=== PATIENT | male | born 1995 | race Two or more races ===

== ENCOUNTER 2025-06-17 20:30 | Emergency (ER) | payer MEDICAID, SELFPAY ==
[2025-06-17 20:33] VITALS: BMI 30.8
[2025-06-17 20:47] VITALS: BP 149/96; PULSE 90; RESP 18; TEMP 37.4; O2SAT 96
--- NOTE | 2025-06-17 21:03 | XR_ITS ---
Examination: Foot, right, 3 views Technique: AP, oblique, lateral views foot, 3 views Date and time of exam: June 17, 20252010 hours INDICATION: Right foot swelling and pain beginning 4 days ago. FINDINGS: No fracture or dislocation Soft tissue swelling dorsum of the foot IMPRESSION: Soft tissue swelling dorsum of the foot No fracture or cortical bone destruction
--- NOTE | 2025-06-17 21:04 | PD.EDRME ---
Rapid Medical Screening Exam E Arrival date/time: 06/17/25 20:30 30M with no significant PMH presents to ED with several days of worsening R foot swelling/pain w/o fall/trauma or skin injury/penetration. Chief Complaint: Ankle/Foot Injury Vital signs: Vital Signs Temperature 99.3 F 06/17/25 20:47 Pulse Rate 90 06/17/25 20:47 Respiratory Rate 18 06/17/25 20:47 Blood Pressure 149/96 H 06/17/25 20:47 Pulse Oximetry (%) 96 06/17/25 20:47 Oxygen Delivery Method Room Air 06/17/25 20:47
[2025-06-17 21:16] LABS: Basophils # (Auto) 0.0 Thou/mm3 (0.0-0.2); Basophils % (Auto) 0 % (0-2.5); Eosinophils # (Auto) 0.2 Thou/mm3 (0.0-0.5); Eosinophils % (Auto) 3 % (0-10); Hematocrit 41.6 % (41.0-53.0); Hemoglobin 13.9 g/dL (13.5-16.0); Immature Granulocytes Auto 0.04 Thou/mm3 (0.00-0.00); Lymphocytes # (Auto) 2.2 Thou/mm3 (1.0-4.8); Lymphocytes % (Auto) 28 % (10-50); Mean Corpuscular HGB Conc 33.4 g/dl (31.0-37.0); Mean Corpuscular Hemoglobin 28.7 pg (25.0-35.0); Mean Corpuscular Volume 86 fL (80-100); Monocytes # (Auto) 0.7 Thou/mm3 (0.0-0.8); Monocytes % (Auto) 9 % (0-12); Neutrophils # (Auto) 4.7 Thou/mm3 (1.8-7.7); Neutrophils % (Auto) 59 % (37-80); Nucleated Red Blood Cell # 0.00 Thou/mm3 (0.00-0.00); Nucleated Red Blood Cell % 0 /100 WBC (0); Platelet Count 290 Thou/mm3 (140-440); RDW Standard Deviation 39.8 fL (35.1-43.9); Red Blood Count 4.84 Miln/mm3 (4.50-5.90); White Blood Count 7.9 Thou/mm3 (3.8-10.6)
[2025-06-17 21:33] LABS: Sed Rate (ESR) 13 mm/hr (0-15)
[2025-06-17 22:01] LABS: Alanine Aminotransferase 67 U/L (10-49); Albumin, Serum 4.7 gm/dL (3.5-5.0); Albumin/Globulin Ratio 1.6 (1.2-2.2); Alkaline Phosphatase 76 U/L (46-116); Anion Gap 7 (7-16); Aspartate Amino Transferase 32 U/L (0-34); BUN/Creatinine Ratio 11 Ratio (12-20); Bilirubin,Total 0.4 mg/dL (0.3-1.2); Blood Urea Nitrogen 10 mg/dL (9-23); Calcium 9.8 mg/dL (8.3-10.6); Calcium (Corrected) 9.8 mg/dL (8.5-10.1); Carbon Dioxide 27.6 mMol/L (20.0-31.0); Chloride 104 mMol/L (98-107); Creatinine (Component) 0.9 mg/dL (0.6-1.3); Estimated Creatinine Clearance 131.3 mL/min (>60); Globulin 2.9 gm/dL (2.3-3.5); Glucose 166 mg/dL (74-106); Osmolality,Calculated 280 (275-295); Potassium 3.9 mMol/L (3.4-5.1); Sodium 139 mMol/L (136-145); Total Protein 7.6 gm/dL (5.7-8.2); eGFR > 60 See Note
[2025-06-17 22:45] LABS: Glucose Estimated Average 128 mg/dL (80-131); Hemoglobin A1C 6.1 % Hgb (4.8-6.0)
[2025-06-17 23:36] VITALS: BP 154/89; PULSE 84; RESP 18; TEMP 37.3; O2SAT 97
--- NOTE | 2025-06-18 00:13 | EDNOTE_ITS ---
Lower Extremity Injury RME/HPI General Chief Complaint: Ankle/Foot Injury Stated Complaint: RT FOOT SWOLLEN Arrival date/time: 06/17/25 20:30 Limitations: no limitations RME / HPI RME / HPI Narrative: 06/17/25 20:30 30M with no significant PMH presents to ED with several days of worsening R foot swelling/pain w/o fall/trauma or skin injury/penetration. -------- Dr. Sher's Main ED Evaluation: 30yo male with no significant past medical history presents to the ED for a chief complaint of right foot pain and swelling x 4 days. No trauma or injuries. Patient denies any history of diabetes. Denies any fever, chills, or any other associated symptoms. Related Data Previous Rx's ?Medication ?Instructions ?Recorded acetaminophen 325 mg tablet 650 mg (2 x 325 mg) PO QID PRN 06/18/25 (Tylenol) fever or pain #30 tabs clindamycin HCl 300 mg capsule 300 mg PO Q6H #40 caps 06/18/25 ibuprofen 200 mg capsule (Motrin 600 mg (3 x 200 mg) P O Q8H PRN 06/18/25 IB) fever or pain #30 caps Allergies Allergy/AdvReac Type Severity Reaction Status Date / Time No Known Allergies Allergy Verified 06/17/25 20:32 Review of Systems Review of Systems Systems Reviewed: All systems reviewed, normal except as documented Past Medical History Social History SMOKING STATUS: Never smoker ED Exam General Limitations: Present no limitations General appearance: Present alert and in no apparent distress Head Head exam: Present atraumatic Eye Eye exam: Present normal appearance, PERRL and EOMI ENT ENT exam: Present normal exam, normal oropharynx and mucous membranes moist Neck Neck exam: Present normal inspection, full ROM and trachea midline Chest Chest inspection: Present normal inspection and symmetric chest wall rise Respiratory Respiratory exam: Present normal lung sounds bilaterally Cardiovascular Cardiovascular exam: Present regular rate, normal rhythm and normal heart sounds Abdominal Exam Abdominal exam: Present soft and normal bowel sounds Extremities Exam Extremities exam: Present full ROM and other (minimal swelling to the anterior right foot with redness up to the anterior leg; full ROM of the ankle, good pulses, no fluctuance) Back Exam Back exam: Present normal inspection and full ROM Neurological Exam Neurological exam: Present alert, oriented X3 and CN II-XII intact Psychiatric Psychiatric exam: Present normal affect and normal mood Skin Skin exam: Present warm, dry, intact and normal color Course Quality Measures none Orders Category Date Time Status XR foot comp RT min 3V Stat Exams 06/17/25 21:03 Completed A1C [Glycohemoglobin w (eAG)] Stat Lab 06/17/25 21:11 Completed CBC Stat Lab 06/17/25 21:11 Completed CMP [Comprehensive Metabolic Panel] Stat Lab 06/17/25 21:11 Results CRP [C-Reactive Protein] Stat Lab 06/17/25 21:11 Results ESR [Sed Rate (ESR)] Stat Lab 06/17/25 21:11 Completed Uric Acid Stat Lab 06/17/25 21:11 Results Clindamycin 900Mg Ivpb [Cleocin/D5w Ivpb] 900 mg Med 06/18/25 00:20 Ordered Pre-Mixed [Pre-mixed Bag] 1 bag IV X1 Ketorolac Inj [Toradol Inj] Med 06/18/25 00:20 Once 30 mg IVP X1 ONE Vital Signs Vital signs: Vital Signs Temperature 99.3 F 06/17/25 20:47 Pulse Rate 90 06/17/25 20:47 Respiratory Rate 18 06/17/25 20:47 Blood Pressure 149/96 H 06/17/25 20:47 Pulse Oximetry (%) 96 06/17/25 20:47 Oxygen Delivery Method Room Air 06/17/25 20:47 Extremity Injury, Lower MDM Narrative MDM Narrative:: Scribe Attestation: 06/18/25 Susan Garcia am scribing for and in the presence of Dr. Sher. Patient data External records reviewed:: [facility] previous records (Per chart review, patient has no previous ED visits or admissions to this facility.) Clinical information provided by:: patient Social determinants that could affect healthcare access:: none Patient has the following chronic illnesses:: none How is presenting disease/condition affected by chronic disease/condition?: no chronic disease Evaluation data The following diagnostics were reviewed and interpreted by me:: lab results and radiology exam(s) Lab and/or radiology exams considered but not ordered:: none Interpretation Summary: CBC normal, Glucose 166, Sed Rate normal. ------- [place] [facility] Report Signed Patient: LEONARD ABBOTT [facility]. Record#: [id number] Birthdate: 1995 Age/Sex: 30 / M [facility] Att[facility] Dr: Ordering Physician: Richi Cedeño PA-C Date of Service: 06/17/25 Procedure(s): XR foot comp RT min 3V Accession Number(s): [id number] cc: Omero Maguire MD; NO PRIMARY/FAMILY,PHYSICIAN; Richi Cedeño PA-C~ Examination: Foot, right, 3 views Technique: AP, oblique, lateral views foot, 3 views Date and time of exam: June 17, 2025, 2010 hours INDICATION: Right foot swelling and pain beginning 4 days ago. FINDINGS: No fracture or dislocation Soft tissue swelling dorsum of the foot IMPRESSION: Soft tissue swelling dorsum of the foot No fracture or cortical bone destruction Dictated By: Omero Maguire MD Signed By: <Electronically signed by Omero Maguire MD in [place]> 06/17/25 2131 Medications / Prescriptions Medications or Prescriptions considered but not ordered:: none Medication administrations:: Medication Administration History Clindamycin Phosphate 900 mg/ (IV Miscellaneous Supplies) 50 mls @ 50 mls/hr IV X1 ONE Stop: 06/18/25 01:19 Ketorolac Tromethamine (Ketorolac Inj 30 Mg/Ml Vial) 30 mg IVP X1 ONE Stop: 06/18/25 00:21 see above Consultations Consultation(s) initiated? (list below): No Diagnosis Extremity Injury, Lower Differential Diagnosis: other (gout, abscess, contusion, cellulitis) Most likely diagnosis given after review of the tests above:: see clinical impression below Admission Indicated Admission indicated?: not indicated Admission Request Was there a request for admission?: No Disposition Plan Disposition Plan: Discharge Discharge Attestation Discharge Attestation: The patient and all family members were given an opportunity to ask questions and understood the discharge instructions. Discharge instructions specifically effects, indications for sooner follow up or return to the emergency department, and the expected course of current diagnosis. Patient condition: Stable Discharge Plan Plan Patient Disposition: HOME (Self Care) Patient condition on transfer: Stable Prescriptions/Referrals Prescriptions/Med Rec: New acetaminophen [Tylenol] 325 mg tablet 650 mg PO QID PRN (Reason: fever or pain) Qty: 30 0RF ibuprofen [Motrin IB] 200 mg capsule 600 mg PO Q8H PRN (Reason: fever or pain) Qty: 30 0RF clindamycin HCl 300 mg capsule 300 mg PO Q6H Qty: 40 0RF Referrals: [facility] [Outside] - In 1 week No Primary/Family,Physician [Primary Care Provider] - In 1 week Problem List Clinical Impression: Cellulitis Patient/Caregiver Discharge Instructions Education Materials: Discharge Instructions for Cellulitis, ED Cellulitis, ED RICE Additional Instructions: Take the antibiotics as prescribed. Make sure you are elevating your foot for the next few days. You can take [id number] Tylenol 650 mg 3 times a day and/or Motrin 600 mg 3 times a day for the next 2 to 3 days.. Return to emergency department if the pain increases, you cannot walk, if fever greater than 101 despite Tylenol, or any other concerns. Follow-up with your primary care on Saturday. If you cannot get an appointment or do not have a primary care, follow-up at the [facility]. ------ [place] los antibi?ticos seg?n lo recetado. Aseg?rese de mantener el pie en alto maricarmen los pr?ximos d?as. Puede belen Tylenol de 650 mg 3 veces al d?a y/o Motrin de 600 mg 3 veces al d?a maricarmen los pr?ximos 2 a 3 d?as. Regrese a urgencias si el dolor aumenta, no puede caminar, si la fiebre supera los 38 ?C a pesar de belen Tylenol o si tiene alguna otra inquietud. Consulte con cedeño m?dico de cabecera el . Si no puede conseguir aminah chiara o no tiene un m?dico de cabecera, consulte con el [facility]. Print Language: Bengali Stand Alone Forms: Sheree Award Info., Patient Portal Info Letter
[2025-06-18] MEDS: CLINDAMYCIN 900MG IVPB 900 MG in PRE-MIXED 1 BAG 50 MG IV (00:56)
[2025-06-18] MEDS: KETOROLAC INJ 30 MG/ML VIAL IVP (00:56)
[2025-06-18 01:34] LABS: C-Reactive Protein 1.6 mg/dL (0.0-0.9); Uric Acid 6.6 mg/dL (3.7-9.2)
== END 2025-06-18 02:11 | disposition home or self-care (01) ==
PROVIDERS: Physician Assistant; Emergency Provider Emergency Medicine
DX: L03.115 Cellulitis of right lower limb (principal)
CPT/HCPCS: 36415; 73630; 80053; 83036; 84550; 85025; 85652; 86140; 96374; 99283; J1885; S0077; J0736